=== PATIENT | female | born 1995 | race American Indian/Alaskan Native ===

== ENCOUNTER 2017-01-08 19:34 | Emergency (ER) | payer SELFPAY ==
[2017-01-09 00:06] LABS: Urine Drugs of Abuse Note Disclamer
[2017-01-09 00:48] LABS: Basophils % (Auto) 0.6 % (0.0-1.8); Eosinophils % (Auto) 0.2 % (0.0-4.3); Hematocrit 37.2 % (30.3-42.9); Hemoglobin 12.3 gm/dl (10.1-14.3); Mean Corpuscular HGB Conc 33 % (30-34); Mean Corpuscular Hemoglobin 28 pg (28-32); Mean Corpuscular Volume 85 fl (79-97); Platelet Count 282 K/mm3 (140-440); Red Blood Count 4.39 M/mm3 (3.65-5.03); Red Cell Distribution Width 14.6 % (13.2-15.2); White Blood Count 4.1 K/mm3 (4.5-11.0)
[2017-01-09 00:54] LABS: Bilirubin,Urine NEG (Negative); Blood,Urine LG (Negative); Ketones,Urine 80 mg/dL (Negative); Leukocyte Esterase,Urine TR (Negative); Mucus,Urine 3+ /HPF; Nitrite,Urine NEG (Negative); Urobilinogen,Urine < 2.0 mg/dL (<2.0)
[2017-01-09 01:06] LABS: Anion Gap 19 mmol/L; BUN/Creatinine Ratio 21.66; Blood Urea Nitrogen 13 mg/dL (7-17); Calcium 8.8 mg/dL (8.4-10.2); Carbon Dioxide 21 mmol/L (22-30); Chloride 95.7 mmol/L (98-107); Glucose 149 mg/dL (65-100); Sodium 133 mmol/L (137-145)
[2017-01-09 01:09] LABS: Potassium 2.8 mmol/L (3.6-5.0)
[2017-01-09] MEDS ORDERED: K-DUR PO ONE (02:17)
[2017-01-09] MEDS ORDERED: KCL 10MEQ/100ML 10 MEQ/100 ML BAG IV SCH (05:00)
--- NOTE | 2017-01-09 05:39 | Emergency Department Report ---
ED Female HPI - General Chief complaint: Medical Clearance Stated complaint: ABDOMINAL PAIN Time Seen by Provider: 01/09/17 02:16 Source: patient Mode of arrival: Ambulatory Limitations: No Limitations - History of Present Illness Initial comments: Patient is a 21-year-old female with history of anxiety/depression as well as pelvic inflammatory disease and bacterial vaginosis recently having finished a course of metronidazole presenting today because of pain in the pelvis. Patient states that this going on for many months. She currently does not have a discharge but is currently on her menstrual cycle. She denies any fevers or chills or vomiting or diarrhea. Has had unprotected sex within the last month. Family was also concerned about her mental health. She has been acting a little bit differently than usual, she denies any thoughts of hurting herself or others, no hallucinations. - Related Data Previous Rx's Medication Instructions Recorded Last Taken Type metroNIDAZOLE [Flagyl TAB] 500 mg PO Q12HR #14 tab 01/09/17 Unknown Rx Allergies Allergy/AdvReac Type Severity Reaction Status Date / Time No Known Allergies Allergy Verified 01/09/17 05:02 ED Review of Systems ROS: Stated complaint: ABDOMINAL PAIN Other details as noted in HPI Comment: All other systems reviewed and negative Constitutional: denies: chills, fever ENT: denies: ear pain Respiratory: denies: cough Cardiovascular: denies: chest pain Gastrointestinal: denies: abdominal pain, vomiting, diarrhea Genitourinary: denies: urgency, dysuria Skin: denies: rash Psychiatric: denies: anxiety ED Past Medical Hx - Past Medical History Previous Medical History?: Yes Hx Psychiatric Treatment: Yes (bipolar) - Surgical History Past Surgical History?: Yes Additional Surgical History: - Social History Smoking Status: Never Smoker - Medications Home Medications: Home Medications Medication Instructions Recorded Confirmed Last Taken Type metroNIDAZOLE [Flagyl TAB] 500 mg PO Q12HR #14 tab 01/09/17 Unknown Rx ED Physical Exam - General Limitations: No Limitations General appearance: alert, in no apparent distress - Head Head exam: Present: atraumatic - Eye Eye exam: Present: normal appearance - ENT ENT exam: Present: normal exam - Neck Neck exam: Present: normal inspection - Respiratory Respiratory exam: Present: normal lung sounds bilaterally, respiratory distress - Cardiovascular Cardiovascular Exam: Present: regular rate, normal rhythm - GI/Abdominal GI/Abdominal exam: Present: soft. Absent: distended, tenderness - External exam: Present: normal external exam Speculum exam: Present: other (small amount of blood in the vaginal vault, no active bleeding, no significant discharge, no cmt, no adenexal or suprapubic tenderness) - Neurological Exam Neurological exam: Present: alert, oriented X3 - Psychiatric Psychiatric exam: Present: other (goes off topic but easily redirectable, does not appear depressed, no si/hi, no flight of ideas, no racing thoughts) - Skin Skin exam: Present: intact ED Course Vital Signs 01/08/17 01/09/17 01/09/17 20:06 02:09 06:07 Temperature 98.3 F Pulse Rate 88 73 80 Respiratory 16 18 17 Rate Blood Pressure 119/81 Blood Pressure 125/82 120/80 [Left] O2 Sat by Pulse 100 98 99 Oximetry ED Medical Decision Making - Lab Data Result diagrams: 01/09/17 00:33 01/09/17 06:23 - Medical Decision Making labs show hypokalemia, po and IV potassium ordered u/s of pelvis ordered to r/o abscess given hx of PID or torsion Signed out to Dr. Marie to follow up ultrasound results Critical care attestation.: If time is entered above; I have spent that time in minutes in the direct care of this critically ill patient, excluding procedure time. ED Disposition Clinical Impression: Bacterial vaginosis, Hypokalemia Disposition: DISCHARGED TO HOME OR SELFCARE Is pt being admited?: No Does the pt Need Aspirin: No Condition: Stable Instructions: Bacterial Vaginosis (ED) Additional Instructions: Please follow up with the primary care physician in the next 3-5 days. Return to the ER if your symptoms worsen or you develop new symptoms. Avoid alcohol for at least 48 hours after you finish the prescription of metronidazole. Prescriptions: metroNIDAZOLE [Flagyl TAB] 500 mg PO Q12HR #14 tab Referrals: PRIMARY CARE, [Primary Care Provider] - 3-5 Days Forms: STI Treatment and Prevention
[2017-01-09] MEDS ORDERED: MOTRIN PO ONE (05:44)
[2017-01-09] MEDS ORDERED: NACL 0.9% 500 ML 500 ML ONE (05:53)
[2017-01-09 05:57] LABS: Magnesium 2.1 mg/dL (1.7-2.3); Phosphorous 2.3 mg/dL (2.5-4.5)
[2017-01-09] MEDS ORDERED: NACL 0.9% 500 ML 500 ML IV SCH (06:00)
[2017-01-09 06:08] VITALS: BP 120/80
--- NOTE | 2017-01-09 06:11 | Ultrasound Report ---
FINAL REPORT PROCEDURE: US TRANSVAGINAL TECHNIQUE: Real-time transvaginal sonography in multiple planes of the pelvis was performed with image documentation. This examination was performed without Doppler. Vascular abnormalities, including ovarian torsion, will not be detectable without Doppler evaluation. CPT 80519 HISTORY: right adenexal pain, hx of pid COMPARISON: No prior studies are available for comparison. FINDINGS: UTERUS Size: 6.2 x 2.8 x 3.3 cm. Endometrial thickness: 2.6 mm. Orientation: anteverted. Cervix: Normal. Fibroids/masses: None. RIGHT Ovary: 3.7 x 2.8 x 2.7 cm. Appearance: Normal. LEFT Ovary: 2.8 x 1.8 x 3.3 cm. Appearance: Normal. Pelvic fluid: None. Other: None. IMPRESSION: Normal Examination.
--- NOTE | 2017-01-09 06:13 | Ultrasound Report ---
FINAL REPORT PROCEDURE: US PELVIS DUPLEX DOPPLER TECHNIQUE: Real-time TRANSABDOMINAL sonography in multiple planes of the pelvis was performed with image documentation. This examination was performed WITH doppler. HISTORY: right adenexal pain, hx of pid COMPARISON: No prior studies are available for comparison. FINDINGS: UTERUS Size: 6.2 x 2.8 x 3.3 cm. Endometrial thickness: 2.6 mm. Orientation: anteverted. Cervix: Normal. Fibroids/masses: None. RIGHT Ovary: 3.7 x 2.8 x 2.7 cm. Appearance: Normal. LEFT Ovary: 2.8 x 1.8 x 3.3 cm. Appearance: Normal. Pelvic fluid: None. Other: None. IMPRESSION: Normal uterus and ovaries. There is no evidence of ovarian torsion.
[2017-01-09] MEDS ORDERED: NACL 0.9% 1000 ML 1,000 ML ONE (06:30)
== END 2017-01-09 07:21 | disposition home or self-care (01) ==
LOC: ED 19:34 → EEVIPCON 19:34 → ED 01-09 07:21
DX: N76.0 Acute vaginitis (principal); B96.89 Other specified bacterial agents as the cause of diseases classified elsewhere; E87.6 Hypokalemia; F31.9 Bipolar disorder, unspecified
CPT/HCPCS: 36415; 76830; 80048; 80307; 81001; 81025; 83735; 84100; 84132; 85025; 87210; 87591; 93975; 96365; 99285; G0480; J3480; J7030; J7040; 80320

== ENCOUNTER 2019-01-25 16:52 | Emergency (ER) | payer MEDICAID ==
--- NOTE | 2019-01-25 17:06 | Emergency Department Report ---
Blank Doc - Documentation Documentation: 23 y/o female 5 months under the care of NURSE SUPERVISOR presents to ED c/o of lower abdominal pain and vaginal discharge. Wants evaluation because she feels she is too small and pain wont resolve. Denies vaginal bleeding. No vomiting or fever. NO dysuria plan Urine, hcg quant and U/S
[2019-01-25 17:38] LABS: Bacteria,Urine 1+ /HPF (Negative); Bilirubin,Urine NEG (Negative); Blood,Urine NEG (Negative); Color,Urine Straw (Yellow); Mucus,Urine FEW /HPF; Protein,Urine <15 mg/dL mg/dL (Negative); Urobilinogen,Urine < 2.0 mg/dL (<2.0)
--- NOTE | 2019-01-25 18:03 | Emergency Department Report ---
ED HPI - General Chief complaint: Abdominal Pain Stated complaint: ABDOMINAL PAIN Time Seen by Provider: 01/25/19 17:02 Source: patient Mode of arrival: Ambulatory Limitations: No Limitations - History of Present Illness Initial comments: Pt is a 23 yo female who presents to the ED with c/o suprapubic abd pain that began months ago. Pt states she believes she is currently 5 months and states she has had abdominal discomfort throughout her . She states she was told at her [employer] that she had BV two months ago but pt reports she did not get treatment. States she is having increased white vaginal discharge. She denies any itching, burning, dysuria, vaginal lesions, vaginal blisters. Pt states she believes her LNMP was in Sep 2018 but is not sure. She states her [employer]ICE [employer] OF [employer] is at [facility] and states she last had an US on November 01. She denies any V/D or fever. no PMHx, no allergies. /P:0/A:1 - Related Data Previous Rx's Medication Instructions Recorded Last Taken Type metroNIDAZOLE [Flagyl TAB] 500 mg PO Q12HR #14 tab 01/09/17 Unknown Rx metroNIDAZOLE [metroNIDAZOLE 5 gm VG DAILY 5 Days #1 gel.w.appl 01/25/19 Unknown Rx VAGINAL 0.75% gel] Allergies Allergy/AdvReac Type Severity Reaction Status Date / Time No Known Allergies Allergy Verified 01/25/19 16:53 ED Review of Systems ROS: Stated complaint: ABDOMINAL PAIN Other details as noted in HPI Comment: All other systems reviewed and negative ED Past Medical Hx - Past Medical History Hx Psychiatric Treatment: Yes (bipolar) - Surgical History Additional Surgical History: - Social History Smoking Status: Never Smoker Substance Use Type: None - Medications Home Medications: Home Medications Medication Instructions Recorded Confirmed Last Taken Type metroNIDAZOLE [Flagyl TAB] 500 mg PO Q12HR #14 tab 01/09/17 Unknown Rx metroNIDAZOLE [metroNIDAZOLE 5 gm VG DAILY 5 Days #1 gel.w.appl 01/25/19 Unknown Rx VAGINAL 0.75% gel] ED Physical Exam - General Limitations: No Limitations General appearance: alert, in no apparent distress - Head Head exam: Present: atraumatic, normocephalic - Eye Eye exam: Present: normal appearance, PERRL - ENT ENT exam: Present: mucous membranes moist - Respiratory Respiratory exam: Present: normal lung sounds bilaterally. Absent: respiratory distress, wheezes, rales, rhonchi, stridor, chest wall tenderness, accessory muscle use, decreased breath sounds, prolonged expiratory - Cardiovascular Cardiovascular Exam: Present: regular rate, normal rhythm, normal heart sounds. Absent: systolic murmur, diastolic murmur, rubs, gallop - GI/Abdominal GI/Abdominal exam: Present: soft, normal bowel sounds. Absent: distended, tenderness, guarding, rebound, rigid - External exam: Present: normal external exam. Absent: erythema, swelling, lesions, lacerations, ecchymosis, bleeding Speculum exam: Present: vaginal discharge (copious amounts of white/clear discharge), cervical discharge (copious amounts of white/clear discharge), other (cervical os is closed, project construction assistant manager: CLEVE smith). Absent: vaginal bleeding, foreign body, tissue, laceration Bi-manual exam: Present: normal bi-manual exam. Absent: cervical motion tendernes, adnexal tenderness, adnexal mass, uterine enlargement, uterine tenderness - Back Exam Back exam: Absent: CVA tenderness (R), CVA tenderness (L) - Neurological Exam Neurological exam: Present: alert, oriented X3 - Psychiatric Psychiatric exam: Present: normal affect, normal mood - Skin Skin exam: Present: warm, dry, intact ED Course Vital Signs 01/25/19 01/25/19 17:02 22:05 Temperature 97.8 F 98.7 F Pulse Rate 72 81 Respiratory 20 20 Rate Blood Pressure 111/70 Blood Pressure 106/67 [Left] O2 Sat by Pulse 100 100 Oximetry ED Medical Decision Making - Lab Data Lab Results 01/25/19 01/25/19 Range/Units 17:37 Unknown HCG, Quant 79728 H (0-4) mIU/mL Urine Color Straw (Yellow) Urine Turbidity Clear (Clear) Urine pH 7.0 (5.0-7.0) Ur Specific [place] 1.008 (1.003-1.030) Urine Protein <15 mg/dl (Negative) mg/dL Urine Glucose (UA) Neg (Negative) mg/dL Urine Ketones Neg (Negative) mg/dL Urine Blood Neg (Negative) Urine Nitrite Neg (Negative) Urine Bilirubin Neg (Negative) Urine Urobilinogen < 2.0 (<2.0) mg/dL Ur Leukocyte Esterase Lg (Negative) Urine WBC (Auto) 3.0 (0.0-6.0) /HPF Urine RBC (Auto) 2.0 (0.0-6.0) /HPF U Epithel Cells (Auto) 1.0 (0-13.0) /HPF Urine Bacteria (Auto) 1+ (Negative) /HPF Urine Mucus Few /HPF - Radiology Data Radiology results: report reviewed PROCEDURE: US OB >= 14 WEEKS FETUS TECHNIQUE: Multiple ultrasound transabdominal HISTORY: pelvic pain/ COMPARISONS: FINDINGS: Single live intrauterine gestation present in breech presentation Placenta is anterior heart rate 152 bpm Cervical length 4.0 cm biometric measurements were obtained Biparietal diameter 18 weeks 4 days Head circumference 18 weeks 1 day. Abdominal circumference 18 weeks 4 days Femur length 18 weeks 4 days. Based on today's exam estimated weight is 246 g. Estimated weight 1 lb. 9 oz. Composite gestational age today 18 weeks 3 days with estimated date of delivery June 25, 2019 Following structures were seen and appear grossly unremarkable, choroid plexus, cisterna magna, posterior fossa, ventricles, stomach, kidneys, urinary bladder, diaphragm, four- chamber view of the heart, three-vessel cord and cord insert Visualized portions of the spine are unremarkable there is some limitation due to positioning IMPRESSION: Single live intrauterine gestation estimated at 18 weeks 3 days. This document is electronically signed by Emir Boyd MD., January 25 2019 08:07:46 PM ET Transcribed By: MEGHAN Dictated By: KIRBY BOYD MD Electronically Authenticated By: KIRBY BOYD MD Signed Date/Time: 01/25/192008 - Medical Decision Making Pt is a 23 yo female who presents to the ED with c/o suprapubic abd pain that began months ago. Pt states she believes she is currently 5 months and states she has had abdominal discomfort throughout her . She states she was told at her [employer] that she had BV two months ago but pt reports she did not get treatment. States she is having increased white vaginal discharge. She denies any itching, burning, dysuria, vaginal lesions, vaginal blisters. Pt states she believes her LNMP was in Sep 2018 but is not sure. She states her [employer]ICE [employer] is at [facility] and states she last had an US on November 01. She denies any V/D or fever. no PMHx, no allergies. /P:0/A:1. OB US shows Single live intrauterine gestation estimated at 18 weeks 3 day. UA is normal. on pelvic exam pt has copious amounts of discharge, no CMT, no adnexal tenderness. Wet prep shows many PMNs, no clue cells, no trichomonas, no yeast. pt also swabbed for G/C advised may get results from medical records in one week. will tx pt in the ER for G/C and send home with metrogel. advised to use as prescribed. discussed to follow up with her [employer]ICE [employer] OF [employer]ING in the next 2-3 days. no intercourse for 10 days. have partner tested and treated. if concerned for any other STDs be seen by PCP, VICE [employer]IDENT OF [employer], or health department. return to the emergency room for any new or worsening symptoms. - Differential Diagnosis STD, , vaginitis Critical care attestation.: If time is entered above; I have spent that time in minutes in the direct care of this critically ill patient, excluding procedure time. ED Disposition Clinical Impression: Qualifiers: Weeks of gestation: 18 weeks Qualified Code(s): Z3A.18 - 18 weeks gestation of Vaginitis Qualifiers: Chronicity: acute Qualified Code(s): N76.0 - Acute vaginitis Abdominal pain Qualifiers: Abdominal location: lower abdomen, unspecified Qualified Code(s): R10.30 - Lower abdominal pain, unspecified Disposition: DC-01 TO HOME OR SELFCARE Is pt being admited?: No Does the pt Need Aspirin: No Condition: Stable Instructions: (ED), Vaginitis (ED) Additional Instructions: Please use medication as prescribed. You may get results from medical records in one week from your test from today. Please follow up with your [employer]ICE [employer] in the next 2-3 days. no intercourse for 10 days. have partner tested and treated. if concerned for any other STDs be seen by PCP, [employer], or health department. return to the emergency room for any new or worsening symptoms. continue taking a vitamin daily. Prescriptions: metroNIDAZOLE [metroNIDAZOLE VAGINAL 0.75% gel] 5 gm VG DAILY 5 Days #1 gel.w.appl Referrals: XOCHILT BOOTH MD [Primary Care Provider] - 2-3 Days Forms: Work/School Release Form(ED) Time of Disposition: 20:57 Print Language: PAKISTANI
--- NOTE | 2019-01-25 20:09 | Ultrasound Report ---
PROCEDURE: US OB >= 14 WEEKS FETUS TECHNIQUE: Multiple ultrasound transabdominal HISTORY: pelvic pain/ COMPARISONS: FINDINGS: Single live intrauterine gestation present in breech presentation Placenta is anterior heart rate 152 bpm Cervical length 4.0 cm biometric measurements were obtained Biparietal diameter 18 weeks 4 days Head circumference 18 weeks 1 day. Abdominal circumference 18 weeks 4 days Femur length 18 weeks 4 days. Based on today's exam estimated weight is 246 g. Estimated weight 1 lb. 9 oz. Composite gestational age today 18 weeks 3 days with estimated date of delivery June 25, 2019 Following structures were seen and appear grossly unremarkable, choroid plexus, cisterna magna, poste rior fossa, ventricles, stomach, kidneys, urinary bladder, diaphragm, four-chamber view of the heart, three-vessel cord and cord insert Visualized portions of the spine are unremarkable there is some limitation due to positioning IMPRESSION: Single live intrauterine gestation estimated at 18 weeks 3 days. This document is electronically signed by Emir Stanton MD., January 25 2019 08:07:46 PM ET
[2019-01-25] MEDS ORDERED: ROCEPHIN IM ONE (20:51)
[2019-01-25] MEDS ORDERED: ZITHROMAX PO ONE (20:51)
[2019-01-25] MEDS ORDERED: XYLOCAINE 1% MPF 5 mL INFILTRATI ONE (20:51)
[2019-01-25 22:06] VITALS: BP 106/67
== END 2019-01-25 22:24 | disposition home or self-care (01) ==
LOC: ED 16:52
DX: O23.592 Infection of other part of genital tract in pregnancy, second trimester (principal); Z3A.18 18 weeks gestation of pregnancy
CPT/HCPCS: 36415; 76805; 81001; 84702; 87210; 87591; 96372; 99284; J0696

== ENCOUNTER 2019-01-27 21:31 | Emergency (ER) | payer MEDICAID, OTHER ==
[2019-01-27 21:41] VITALS: BP 121/70
--- NOTE | 2019-01-27 21:41 | Emergency Department Report ---
Blank Doc - Documentation Documentation: This is a 23-year-old female that presents with depression. Denies any SI/HI, This initial assessment/diagnostic orders/clinical plan/treatment(s) is/are subject to change based on patient's health status, clinical progression and re- assessment by fellow clinical providers in the ED. Further treatment and workup at subsequent clinical providers discretion. Patient/guardians urged not to elope from the ED as their condition may be serious if not clinically assessed and managed. Initial orders include: 1- Patient sent to MAIN ED for further evaluation and treatment 2- senior wind turbine technician was notified to have patient be brought back [facility]. 3- RN was notified to keep patient as close range and observation until room available
[2019-01-27 21:58] LABS: Basophils % (Auto) 0.5 % (0.0-1.8); Eosinophils % (Auto) 0.1 % (0.0-4.3); Hematocrit 34.8 % (30.3-42.9); Hemoglobin 11.8 gm/dl (10.1-14.3); Lymphocytes % (Auto) 28.1 % (13.4-35.0); Mean Corpuscular HGB Conc 34 % (30-34); Mean Corpuscular Volume 87 fl (79-97); Monocytes # (Auto) 0.4 K/mm3 (0.0-0.8); Monocytes % (Auto) 5.5 % (0.0-7.3); Platelet Count 281 K/mm3 (140-440); Red Cell Distribution Width 14.2 % (13.2-15.2)
[2019-01-27 22:17] LABS: BUN/Creatinine Ratio 14; Blood Urea Nitrogen 7 mg/dL (7-17); Hemolysis Index 1
[2019-01-27 22:50] LABS: Bilirubin,Urine NEG (Negative); Blood,Urine NEG (Negative); Color,Urine Yellow (Yellow); Mucus,Urine 3+ /HPF; Protein,Urine <15 mg/dL mg/dL (Negative); Urobilinogen,Urine < 2.0 mg/dL (<2.0)
[2019-01-27 23:05] LABS: Amphetamine Screen,Urine PRESUMPTIVE NEGATIVE; Benzodiazepines Screen,Urine PRESUMPTIVE NEGATIVE; Cannabinoid Screen,Urine PRESUMPTIVE NEGATIVE; Cocaine Screen,Urine PRESUMPTIVE NEGATIVE; Methadone Screen,Urine PRESUMPTIVE NEGATIVE; Opiate Screen,Urine PRESUMPTIVE NEGATIVE
== END 2019-01-27 22:30 | disposition left against medical advice (07) ==
LOC: ED 21:31
DX: F99 Mental disorder, not otherwise specified (principal); Z53.21 Procedure and treatment not carried out due to patient leaving prior to being seen by health care provider
CPT/HCPCS: 36415; 80048; 80307; 81001; 84703; 85025; G0480; 80320

== ENCOUNTER 2019-06-27 03:27 | Inpatient (IN) | payer MEDICAID ==
[2019-06-27] MEDS ORDERED: MINERAL OIL 30 ML ORAL LIQD PO PRN (04:13)
[2019-06-27] MEDS ORDERED: NALOXONE 0.4 MG/1 ML INJ IV PRN (04:13)
[2019-06-27] MEDS ORDERED: AMPICILLIN/NS 2 GM/100 ML 2 GM/100 ML BAG IV ONE (04:13)
[2019-06-27] MEDS ORDERED: PROMETHAZINE 25 MG TAB PO PRN ×2 (04:13→13:47)
[2019-06-27] MEDS ORDERED: ONDANSETRON 4 MG/2 ML INJ IV PRN ×2 (04:13→13:47)
[2019-06-27] MEDS ORDERED: LIDOCAINE (2%) 20 MG/1 ML VIAL 20 ML MDV INFILTRATI ONE ×2 (04:13→13:22)
[2019-06-27] MEDS ORDERED: TERBUTALINE 1 MG/1 ML INJ IVP PRN (04:13)
[2019-06-27] MEDS ORDERED: ePHEDrine SULFATE 50 MG/1 ML INJ IV PRN ×2 (04:13→06:19)
[2019-06-27] MEDS ORDERED: BUTORPHANOL 2 MG/1 ML INJ IV PRN (04:13)
[2019-06-27] MEDS ORDERED: fentaNYL 100 MCG/2 ML INJ IV PRN (04:13)
[2019-06-27] MEDS ORDERED: TERBUTALINE 1 MG/1 ML INJ SUB-Q PRN (04:13)
[2019-06-27 04:46] LABS: Hematocrit 34.2 % (30.3-42.9); Hemoglobin 11.3 gm/dl (10.1-14.3); Mean Corpuscular HGB Conc 33 % (30-34); Mean Corpuscular Volume 85 fl (79-97); Platelet Count 328 K/mm3 (140-440); Red Blood Count 4.02 M/mm3 (3.65-5.03)
[2019-06-27] MEDS: LACTATED RINGERS 1,000 ML IV SCH ×3 (04:47→10:58)
[2019-06-27] MEDS ORDERED: OXYTOCIN DRIP 30 UNITS/500 ML BAG IV SCH ×2 (05:00)
[2019-06-27] MEDS ORDERED: OXYTOCIN 20 UNIT/1000ML DRIP 20 UNITS/1,000 ML BAG IV SCH ×2 (05:00→14:00)
[2019-06-27] MEDS ORDERED: NALOXONE 2 MG/2 ML INJ IV PRN (06:19)
--- NOTE | 2019-06-27 06:24 | Anesthesia Consultation ---
Anesthesia Consult and Med Hx Date of service: 06/27/19 - Airway Anesthetic Teeth Evaluation: Good ROM Head & Neck: Adequate Mental/Hyoid Distance: Adequate Mallampati Class: Class II Intubation Access Assessment: Probably Good - Pulmonary Exam CTA: Yes - Cardiac Exam Cardiac Exam: RRR - Pre-Operative Health Status ASA Pre-Surgery Classification: ASA2 Proposed Anesthetic Plan: Epidural - Pulmonary Hx Smoking: No Hx Asthma: No Hx Respiratory Symptoms: No SOB: No COPD: No Home Oxygen Therapy: No Hx Pneumonia: No Hx Sleep Apnea: No - Cardiovascular System Hx Hypertension: No Hx Coronary Artery Disease: No Hx Heart Attack/AMI: No Hx Angina: No Hx Percutaneous Transluminal Coronary Angioplasty (PTCA): No Hx Cardia Arrhythmia: No Hx Pacemaker: No Hx Internal Defibrillator: No Hx Valvular Heart Disease: No Hx Heart Murmur: No Hx Peripheral Vascular Disease: No - Central Nervous System Hx Neuromuscular Disorder: No Hx Seizures: No CVA: No Hx Back Pain: No Hx Psychiatric Problems: No - Gastrointestinal Hx Ulcer: No Hx Gastroesophageal Reflux Disease: No - Endocrine Hx Renal Disease: No Hx End Stage Renal Disease: No Hx Cirrhosis: No Hx Liver Disease: No Hx Insulin Dependent Diabetes: No Hx Non-Insulin Dependent Diabetes: No Hx Thyroid Disease: No Hx Hypothyroidism: No Hx Hyperthyroidism: No - Hematic Hx Anemia: Yes Hx Sickle Cell Disease: No - Other Systems Hx Alcohol Use: Yes Hx Substance Use: No Hx Cancer: No Hx Obesity: Yes (bmi 35.2)
[2019-06-27] MEDS ORDERED: fentaNYL-BUPIV 2 MCG/ML-0.125% 200 MCG/100 ML BAG EPIDURAL SCH (07:00)
--- NOTE | 2019-06-27 07:52 | History and Physical Report ---
History of Present Illness Date of examination: 06/27/19 Date of admission: 06/27/19 04:15 Chief complaint: labor History of present illness: This is a 23 yo G240 weeks here for labor. She was admitted at 5cm this am at 4am. She is a patient of [facility]. Past History Past Medical History: no pertinent history Past Surgical History: no surgical history Family/Genetic History: diabetes, hypertension Social history: single. denies: smoking, alcohol abuse, prescription drug abuse - Obstetrical History Expected Date of Delivery: 06/27/19 Actual Gestation: 40 Week(s) 0 Day(s) : 2 Para: 0 Hx # Term Pregnancies: 0 Number of Pregnancies: 0 Spontaneous Abortions: 1 Induced : 0 Number of Living Children: 0 Medications and Allergies Allergies Allergy/AdvReac Type Severity Reaction Status Date / Time No Known Allergies Allergy Verified 01/25/19 16:53 Active Meds: Active Medications Butorphanol Tartrate (Stadol) 1 mg IV Q2H PRN PRN Reason: Pain, Moderate (4-6) Ephedrine Sulfate (Ephedrine Sulfate) 10 mg IV Q2M PRN PRN Reason: Hypotension Ephedrine Sulfate (Ephedrine Sulfate) 10 mg IV Q2M PRN PRN Reason: Hypotension Fentanyl (Sublimaze) 100 mcg IV Q2H PRN PRN Reason: Labor Pain Oxytocin/Sodium Chloride (Pitocin/Ns 20 Unit/1000ml Drip) 20 units in 1,000 mls @ 125 mls/hr IV DIRECT BRITTON Oxytocin/Sodium Chloride (Pitocin/Ns 30 Unit/500ml) 30 units in 500 mls @ 1 mls/hr IV TITR BRITTON; Protocol Last Admin: 06/27/19 06:50 Dose: 1 milliunits/min, 1 mls/hr Documented by: Oxytocin/Sodium Chloride (Pitocin/Ns 30 Unit/500ml) 30 units in 500 mls @ 2 mls/hr IV TITR BRITTON; Protocol Lactated Ringer's (Lactated Ringers) 1,000 mls @ 125 mls/hr IV DIRECT BRITTON Last Admin: 06/27/19 06:55 Dose: 125 mls/hr Documented by: Ampicillin Sodium (Ampicillin/Ns 1 Gm/50 Ml) 1 gm in 50 mls @ 100 mls/hr IV Q4HR BRITTON; Protocol Fentanyl/Bupivacaine/Sodium Chlor (Fentanyl-Bupiv 2 Mcg/Ml-0.125%) 200 mcg in 100 mls @ 12 mls/hr EPIDURAL TITR BRITTON; Protocol Mineral Oil (Mineral Oil) 30 ml PO QHS PRN PRN Reason: Constipation Naloxone HCl (Naloxone) 0.1 mg IV Q2MIN PRN PRN Reason: Res Rate </= 8 or 02 SAT < 92% Naloxone HCl (Naloxone) 0.2 mg IV Q5M PRN PRN Reason: Respiratory sedation Ondansetron HCl (Zofran) 4 mg IV Q8H PRN PRN Reason: Nausea And Vomiting Promethazine HCl (Phenergan) 25 mg PO Q6H PRN PRN Reason: Nausea And Vomiting Terbutaline Sulfate (Brethine) 0.25 mg SUB-Q ONCE PRN PRN Reason: Hyperstimulation/Hypertonicity Terbutaline Sulfate (Brethine) 0.25 mg IVP ONCE PRN PRN Reason: Hyperstimulation/Hypertonicity Review of Systems All systems: negative - Vital Signs Vital signs: Vital Signs Pulse BP 73 129/78 06/27/19 03:47 06/27/19 03:47 Temp Pulse Resp BP Pulse Ox 97.9 F 86 18 93/53 100 06/27/19 04:25 06/27/19 07:35 06/27/19 04:25 06/27/19 07:17 06/27/19 07:35 - Physical Exam Breasts: Positive: normal Cardiovascular: Regular rate, Normal S1 Abdomen: Positive: normal appearance, soft, normal bowel sounds. Negative: distention, tenderness, guarding Genitourinary (Female): Positive: normal external genitalia, normal perenium Vagina: Positive: normal moisture Uterus: Positive: normal size, normal contour Anus/Rectum: Positive: normal perianal skin Extremities: Positive: normal Deep Tendon Reflex Grade: Normal +2 - Obstetrical FHR: category 1 Cervical Dilatation: 6 Cervical Effacement Percentage: 90 station: -2 Uterine Contraction Pattern: Regular Uterine Tone Measurement Phase: Contraction Uterine Contraction Intensity: Moderate Results Result Diagrams: 06/27/19 04:21 All other labs normal. Assessment and Plan A/P IUP 40 weeks GBS + active labor IVF, labs s/p epidural pitocin for augmentation abx for GBS prophylaxis
[2019-06-27] MEDS: AMPICILLIN/NS 1 GM/50 ML 1 GM/50 ML BAG IV SCH ×2 (09:09→10:01)
[2019-06-27] MEDS ORDERED: PROMETHAZINE 25 MG RECT SUPP PR PRN (13:47)
[2019-06-27] MEDS ORDERED: LANOLIN/ZINC/DIMETHICONE (LANSINOH) 7 GM TP PRN (13:47)
[2019-06-27] MEDS ORDERED: MAGNESIUM HYDROXIDE (MOM) ORAL LIQD UDC PO PRN (13:47)
[2019-06-27] MEDS ORDERED: ACETAMINOPHEN 325 MG TAB PO PRN (13:47)
[2019-06-27] MEDS ORDERED: WITCH HAZEL/ GLYCERIN PAD TP PRN (13:47)
[2019-06-27] MEDS ORDERED: KETOROLAC 30 MG/1 ML INJ IV PRN (13:47)
[2019-06-27] MEDS ORDERED: HYDROcodone/ACETAMINOPHEN 5-325 MG TAB PO PRN (13:47)
[2019-06-27] MEDS ORDERED: diphenhydrAMINE 25 MG CAP PO PRN (13:47)
[2019-06-27] MEDS ORDERED: BENZOCAINE/MENTHOL 20/0.5% TOP SPRAY 56 GM TP PRN (13:47)
--- NOTE | 2019-06-27 13:47 | Procedure Note ---
OB Delivery Note - Delivery Date of Delivery: 06/27/19 Surgeon: WINSTON CLANCY Estimated blood loss: 500cc - Vaginal Delivery presentation: vertex Delivery position: OA Delivery induction: none Delivery augmentation: rupture of membranes, pitocin Delivery monitor: external FHT, external uterine Route of delivery: Delivery placenta: spontaneous Delivery cord: 3 umbilical vessels Delivery laceration: 2nd degree Delivery repair: vicryl Anesthesia: local, epidural Delivery comments: Patient was noted to be c/c/ +1 and commneced to pushing a viable female at 1300. She delivered vaginally and cord was clamped and cut after placing baby on mother's chest. The cord was cut by father of baby. Cord blood obtained. The placenta delivered intact with 3 vessel cord at 1308. The weight of viable female infant was 6 pounds 7oz. Apgars 8 and 8. Survey of perineum revealed a 2nd degree laceration repaired with 2-0 vicryl. Excellent hemostasis noted patient tolerated and bonding with baby. EBL 500 cc - A at 1 minute: 8 at 5 minutes: 8 Infant Gender: Female (6 pounds 7 ounces)
[2019-06-27] MEDS ORDERED: LIDOCAINE 2%/EPINEPHRINE 1:100,000 VIAL (20 ML) INFILTRATI ONE (13:59)
[2019-06-27] MEDS: IBUPROFEN 600 MG TAB PO SCH (16:40)
[2019-06-27] MEDS: oxyCODONE /ACETAMINOPHEN 5-325MG TAB PO PRN (19:59)
[2019-06-27] MEDS: DOCUSATE SODIUM 100 MG CAP PO SCH (23:00)
[2019-06-28 00:52] LABS: Hematocrit 30.7 % (30.3-42.9); Hemoglobin 10.1 gm/dl (10.1-14.3)
[2019-06-28] MEDS: IBUPROFEN 600 MG TAB PO SCH ×2 (03:48→23:58)
[2019-06-28] MEDS: SENNOSIDES/DOCUSATE SODIUM 8.6/50 MG TAB PO SCH ×2 (04:00→21:48)
[2019-06-28] MEDS ORDERED: MEASLES, MUMPS & RUBELLA 12,500 UNIT/0.5 ML VACCINE SUB-Q ONE (06:00)
[2019-06-28] MEDS ORDERED: TETANUS,DIPH,PERTUSS(ACELL) VACCINE 0.5 ML SYRINGE IM ONE (06:00)
[2019-06-28] MEDS ORDERED: PRENATAL VIT27-FE FUMARATE-FOLIC ACID VIT TAB PO SCH (10:00)
--- NOTE | 2019-06-28 10:01 | Post Anesthesia Evaluation ---
- Post Anesthesia Evaluation Patient Participated: Yes Airway Patent: Yes Stable Respiratory Function: Yes Nausea/Vomiting: No Temp > 96.8F: Yes Pain Manageable: Yes Adequeate Hydration: Yes Anesthesia Complications: No Block Receding Appropriately: Yes Patient on Ventilator: No
--- NOTE | 2019-06-28 11:06 | Progress Note ---
Assessment and Plan A/P PPD1 doing well VSS routine PP care Subjective - Subjective Date of service: 06/28/19 Principal diagnosis: s/p Interval history: This is a 23 yo G240 weeks here for labor. She was admitted at 5cm this am at 4am. She is a patient of [facility]. Patient reports: appetite normal, voiding normally, pain well controlled, flatus, ambulating normally [place]: doing well Objective - Vital Signs Latest vital signs: Vital Signs Temp Pulse Resp BP BP Pulse Ox 06/28/19 08:06 98.4 F 85 20 107/62 96 06/28/19 01:22 98.1 F 92 H 20 116/56 98 06/27/19 20:04 98.0 F 84 20 115/70 99 06/27/19 16:40 18 06/27/19 15:50 98.2 F 74 20 91/69 06/27/19 14:56 99.3 F 06/27/19 14:18 85 101/52 06/27/19 13:48 90 116/68 06/27/19 13:18 90 119/63 06/27/19 13:02 49 L 06/27/19 12:38 96 H 82 L 06/27/19 12:37 87 100 06/27/19 12:32 82 100 06/27/19 12:27 82 100 06/27/19 12:22 83 99 06/27/19 12:17 82 100 06/27/19 12:12 82 100 06/27/19 12:07 89 100 06/27/19 12:02 83 100 06/27/19 11:57 81 100 06/27/19 11:50 95 H 111/58 06/27/19 11:40 91 H 100 06/27/19 11:35 94 H 99 06/27/19 11:30 87 100 06/27/19 11:25 95 H 99 06/27/19 11:20 81 98 06/27/19 11:18 87 95/53 06/27/19 11:15 84 98 06/27/19 11:10 84 99 Intake and Output 06/27/19 06/28/19 06/28/19 23:59 07:59 15:59 Intake Total 240 Output Total 1800 Balance -1800 240 Intake: Oral 240 Output: Urine 1800 Void 1800 Other: Total, Intake Amount 240 Total, Output Amount 900 # Voids Void 1 1 - Exam Breasts: Present: normal Cardiovascular: Present: Regular rate, Normal S1 Lungs: Present: Clear to auscultation, Normal air movement Abdomen: Present: normal appearance, soft, normal bowel sounds. Absent: distention, tenderness, guarding Vulva: both: normal Uterus: Present: normal, firm, fundal height below umbilicus. Absent: bogginess, tenderness Extremities: Present: normal Deep Tendon Reflex Grade: Normal +2 Incision: Present: normal
--- NOTE | 2019-06-28 11:11 | Discharge Summary ---
Providers - Providers Date of Admission: 06/27/19 04:15 Date of discharge: 06/29/19 Attending physician: MARIANO GUEVARA Primary care physician: MARIANO GUEVARA Hospitalization Reason for admission: active labor Delivery: Episiotomy: none Laceration: none Other procedures: none complications: none [place] baby: female Hospital course: Routine PP care. F/u in 4 weeks Condition at discharge: Good Disposition: DC-01 TO HOME OR SELFCARE Plan - Discharge Medications Prescriptions: Ibuprofen [Motrin] 600 mg PO Q8H PRN #30 tablet PRN Reason: Pain oxyCODONE /ACETAMINOPHEN [Percocet 5/325] 1 tab PO Q6HR PRN #30 tablet PRN Reason: Pain - Provider Discharge Summary Activity: routine, no sex for 6 weeks, no strenuous exercise Diet: routine Instructions: routine Additional instructions: [] Smoking cessation referral if applicable(refer to patient education folder for contact #) [] Refer to [facility] Booklet Call your doctor immediately for: * Fever > 100.5 * Heavy vaginal bleeding ( >1 pad per hour) * Severe persistent headache * Shortness of breath * Reddened, hot, painful area to leg or breast * Drainage or odor from incision. * Keep incision clean and dry at all times and follow doctor's instructions regarding bathing/showering - Follow up plan Follow up: MARIANO GUEVARA MD [Primary Care Provider] - 07/25/19
[2019-06-28] MEDS: oxyCODONE /ACETAMINOPHEN 5-325MG TAB PO PRN ×2 (11:48→19:00)
[2019-06-28] MEDS: DOCUSATE SODIUM 100 MG CAP PO SCH ×2 (11:49→21:48)
[2019-06-29] MEDS: IBUPROFEN 600 MG TAB PO SCH ×2 (02:00→16:40)
[2019-06-29] MEDS: oxyCODONE /ACETAMINOPHEN 5-325MG TAB PO PRN (13:25)
[2019-06-29] MEDS: DOCUSATE SODIUM 100 MG CAP PO SCH (13:25)
[2019-06-29 16:28] VITALS: BP 121/82
== END 2019-06-29 18:55 | disposition home or self-care (01) | DRG 775 ==
LOC: TRG 03:27 → LD 04:15 → OB 16:24
PROVIDERS: ADMIT Obstetrics & Gynecology; ATTEND Obstetrics & Gynecology
PROC: 10E0XZZ Delivery of Products of Conception, External Approach (ICD-10-PCS; principal; 2019-06-27)
PROC: 0KQM0ZZ Repair Perineum Muscle, Open Approach (ICD-10-PCS; 2019-06-27)
PROC: 3E0R3BZ Introduction of Anesthetic Agent into Spinal Canal, Percutaneous Approach (ICD-10-PCS; 2019-06-27)
PROC: 00HU33Z Insertion of Infusion Device into Spinal Canal, Percutaneous Approach (ICD-10-PCS; 2019-06-27)
PROC: 3E0234Z Introduction of Serum, Toxoid and Vaccine into Muscle, Percutaneous Approach (ICD-10-PCS; 2019-06-28)
DX: O99.824 Streptococcus B carrier state complicating childbirth (principal); O99.214 Obesity complicating childbirth; O70.1 Second degree perineal laceration during delivery; Z37.0 Single live birth; Z3A.40 40 weeks gestation of pregnancy; Z23 Encounter for immunization; Z82.49 Family history of ischemic heart disease and other diseases of the circulatory system; Z83.3 Family history of diabetes mellitus
CPT/HCPCS: 36415; 85014; 85018; 85027; 86850; 86900; 86901; G0378; A6250; J0290; J2590; J7120

== ENCOUNTER 2019-10-08 16:19 | Emergency (ER) | payer MEDICAID ==
--- NOTE | 2019-10-08 16:32 | Event Note ---
ED Screening Note Date of service: 10/08/19 Time: 16:29 ED Screening Note: 24 yo with Bipolar disorder presnts to ED with father for panic attack and paranoia GM just passed Just had a baby 3 months needing a psych eval This initial assessment/diagnostic orders/clinical plan/treatment(s) is/are subject to change based on patients health status, clinical progression and re- assessment by fellow clinical providers in the ED. Further treatment and workup at subsequent clinical providers discretion. Patient/guardian urged not to elope from the ED as their condition may be serious if not clinically assessed and managed. Initial orders include: labs, ua, psych eval main side eval
[2019-10-08 17:22] LABS: Hemoglobin 14.1 gm/dl (10.1-14.3); Mean Corpuscular HGB Conc 34 % (30-34); Mean Corpuscular Volume 85 fl (79-97); Platelet Count 332 K/mm3 (140-440); Red Blood Count 4.97 M/mm3 (3.65-5.03); Red Cell Distribution Width 14.5 % (13.2-15.2)
[2019-10-08 17:27] LABS: BUN/Creatinine Ratio 17; Blood Urea Nitrogen 10 mg/dL (7-17); Calcium 9.7 mg/dL (8.4-10.2); Hemolysis Index 10
[2019-10-08 17:53] LABS: Bilirubin,Urine NEG (Negative); Blood,Urine MOD (Negative); Color,Urine Yellow (Yellow); Mucus,Urine FEW /HPF; Protein,Urine <15 mg/dL mg/dL (Negative); Urobilinogen,Urine < 2.0 mg/dL (<2.0)
[2019-10-08 18:02] LABS: Amphetamine Screen,Urine PRESUMPTIVE NEGATIVE; Benzodiazepines Screen,Urine PRESUMPTIVE NEGATIVE; Cannabinoid Screen,Urine PRESUMPTIVE NEGATIVE; Cocaine Screen,Urine PRESUMPTIVE NEGATIVE; Methadone Screen,Urine PRESUMPTIVE NEGATIVE; Opiate Screen,Urine PRESUMPTIVE NEGATIVE
[2019-10-08] MEDS ORDERED: ZIPRASIDONE MESYLATE 20 MG VIAL IM ONE ×3 (18:42→23:25)
--- NOTE | 2019-10-08 19:08 | Emergency Department Report ---
ED General Adult HPI - General Chief complaint: Psych Stated complaint: PANIC ATTACK Time Seen by Provider: 10/08/19 17:37 Source: patient Mode of arrival: Ambulatory Limitations: No Limitations - History of Present Illness Initial comments: The patient presents to the emergency department with a chief complaint of insomnia. Patient states she has not slept in the last 2 to 3 days and states it feels like her thoughts are racing in her head. Patient has a history of bipolar and is not currently on medication. Patient is also taking care of her 3-month-old at home. Patient denies any suicidal homicidal ideation. Patient is very paranoid on initial exam and goes from speaking to me normally to crying. -: unknown Severity scale (0 -10): 0 Improves with: none Worsens with: none Associated Symptoms: denies other symptoms Treatments Prior to Arrival: none - Related Data Previous Rx's Medication Instructions Recorded Last Taken Type Ibuprofen [Motrin] 600 mg PO Q8H PRN #30 tablet 06/28/19 Unknown Rx oxyCODONE /ACETAMINOPHEN [Percocet 1 tab PO Q6HR PRN #30 tablet 06/28/19 Unknown Rx 5/325] Allergies Allergy/AdvReac Type Severity Reaction Status Date / Time No Known Allergies Allergy Verified 01/25/19 16:53 ED Review of Systems ROS: Stated complaint: PANIC ATTACK Other details as noted in HPI Comment: All other systems reviewed and negative Constitutional: denies: chills, fever Eyes: denies: eye pain, eye discharge, vision change ENT: denies: ear pain, throat pain Respiratory: denies: cough, shortness of breath, wheezing Cardiovascular: denies: chest pain, palpitations Endocrine: no symptoms reported Gastrointestinal: denies: abdominal pain, nausea, diarrhea Genitourinary: denies: urgency, dysuria, discharge Musculoskeletal: denies: back pain, joint swelling, arthralgia Skin: denies: rash, lesions Neurological: denies: headache, weakness, paresthesias Psychiatric: denies: anxiety, depression, homicidal thoughts, suicidal thoughts Hematological/Lymphatic: denies: easy bleeding, easy bruising ED Past Medical Hx - Past Medical History Previous Medical History?: Yes Hx Hypertension: No Hx Heart Attack/AMI: No Hx Diabetes: No Hx Deep Vein Thrombosis: No Hx Liver Disease: No Hx Renal Disease: No Hx Sickle Cell Disease: No Hx Seizures: No Hx Psychiatric Treatment: Yes (bipolar) Hx Asthma: No Hx COPD: No Hx Dementia: No Hx HIV: No - Surgical History Past Surgical History?: Yes Hx Pacemaker: No Hx Internal Defibrillator: No Additional Surgical History: - Social History Smoking Status: Never Smoker Substance Use Type: None - Medications Home Medications: Home Medications Medication Instructions Recorded Confirmed Last Taken Type Ibuprofen [Motrin] 600 mg PO Q8H PRN #30 tablet 06/28/19 Unknown Rx oxyCODONE /ACETAMINOPHEN [Percocet 1 tab PO Q6HR PRN #30 tablet 06/28/19 Unknown Rx 5/325] ED Physical Exam - General Limitations: No Limitations General appearance: alert, in no apparent distress - Head Head exam: Present: atraumatic, normocephalic - Eye Eye exam: Present: normal appearance, PERRL, EOMI - ENT ENT exam: Present: mucous membranes moist - Neck Neck exam: Present: normal inspection - Respiratory Respiratory exam: Present: normal lung sounds bilaterally. Absent: respiratory distress - Cardiovascular Cardiovascular Exam: Present: regular rate, normal rhythm. Absent: systolic murmur, diastolic murmur, rubs, gallop - GI/Abdominal GI/Abdominal exam: Present: soft, normal bowel sounds - Extremities Exam Extremities exam: Present: normal inspection - Back Exam Back exam: Present: normal inspection - Neurological Exam Neurological exam: Present: alert, oriented X3, CN II-XII intact. Absent: motor sensory deficit - Psychiatric Psychiatric exam: Present: normal affect, normal mood, other (Flight of ideas, paranoid). Absent: homicidal ideation, suicidal ideation - Skin Skin exam: Present: warm, dry, intact, normal color. Absent: rash ED Course Vital Signs 10/08/19 10/08/19 10/08/19 16:28 19:15 19:55 Temperature 97.7 F 97.9 F Pulse Rate 107 H 88 Respiratory 18 20 18 Rate Blood Pressure 123/89 Blood Pressure 125/76 [Right] O2 Sat by Pulse 100 99 99 Oximetry ED Medical Decision Making - Lab Data Result diagrams: 10/08/19 16:53 10/08/19 16:53 Lab Results 10/08/19 10/08/19 10/08/19 Range/Units 16:53 16:53 16:53 WBC (4.5-11.0) K/mm3 RBC (3.65-5.03) M/mm3 Hgb (10.1-14.3) gm/dl Hct (30.3-42.9) % MCV (79-97) fl MCH (28-32) pg MCHC (30-34) % RDW (13.2-15.2) % Plt Count (140-440) K/mm3 Lymph % (Auto) Winn % (Auto) Eos % (Auto) Baso % (Auto) Lymph # Winn # Eos # Baso # Seg Neutrophils % Seg Neutrophils # Sodium 139 (137-145) mmol/L Potassium 3.6 (3.6-5.0) mmol/L Chloride 101.9 (98-107) mmol/L Carbon Dioxide 21 L (22-30) mmol/L Anion Gap 20 mmol/L BUN 10 (7-17) mg/dL Creatinine 0.6 L (0.7-1.2) mg/dL Estimated GFR > 60 ml/min BUN/Creatinine Ratio 17 % Glucose 112 H (65-100) mg/dL Calcium 9.7 (8.4-10.2) mg/dL HCG, Qual (Negative) Urine Color (Yellow) Urine Turbidity (Clear) Urine pH (5.0-7.0) Ur Specific [place] (1.003-1.030) Urine Protein (Negative) mg/dL Urine Glucose (UA) (Negative) mg/dL Urine Ketones (Negative) mg/dL Urine Blood (Negative) Urine Nitrite (Negative) Urine Bilirubin (Negative) Urine Urobilinogen (<2.0) mg/dL Ur Leukocyte Esterase (Negative) Urine WBC (Auto) (0.0-6.0) /HPF Urine RBC (Auto) (0.0-6.0) /HPF U Epithel Cells (Auto) (0-13.0) /HPF Urine Mucus /HPF Salicylates < 0.3 L (2.8-20.0) mg/dL Urine Opiates Screen Urine Methadone Screen Acetaminophen < 5.0 L (10.0-30.0) ug/mL Ur Barbiturates Screen Ur Phencyclidine Scrn Ur Amphetamines Screen U Benzodiazepines Scrn Urine Cocaine Screen U Marijuana (THC) Screen Drugs of Abuse Note Plasma/Serum Alcohol (0-0.07) % 10/08/19 10/08/19 10/08/19 Range/Units 16:53 16:53 16:53 WBC 4.9 (4.5-11.0) K/mm3 RBC 4.97 (3.65-5.03) M/mm3 Hgb 14.1 (10.1-14.3) gm/dl Hct 42.0 (30.3-42.9) % MCV 85 (79-97) fl MCH 28 (28-32) pg MCHC 34 (30-34) % RDW 14.5 (13.2-15.2) % Plt Count 332 (140-440) K/mm3 Lymph % (Auto) Test Cell Technician Winn % (Auto) Test Cell Technician Eos % (Auto) Test Cell Technician Baso % (Auto) Test Cell Technician Lymph # Test Cell Technician Winn # Test Cell Technician Eos # Test Cell Technician Baso # Test Cell Technician Seg Neutrophils % Test Cell Technician Seg Neutrophils # Test Cell Technician Sodium (137-145) mmol/L Potassium (3.6-5.0) mmol/L Chloride (98-107) mmol/L Carbon Dioxide (22-30) mmol/L Anion Gap mmol/L BUN (7-17) mg/dL Creatinine (0.7-1.2) mg/dL Estimated GFR ml/min BUN/Creatinine Ratio % Glucose (65-100) mg/dL Calcium (8.4-10.2) mg/dL HCG, Qual Negative (Negative) Urine Color (Yellow) Urine Turbidity (Clear) Urine pH (5.0-7.0) Ur Specific [place] (1.003-1.030) Urine Protein (Negative) mg/dL Urine Glucose (UA) (Negative) mg/dL Urine Ketones (Negative) mg/dL Urine Blood (Negative) Urine Nitrite (Negative) Urine Bilirubin (Negative) Urine Urobilinogen (<2.0) mg/dL Ur Leukocyte Esterase (Negative) Urine WBC (Auto) (0.0-6.0) /HPF Urine RBC (Auto) (0.0-6.0) /HPF U Epithel Cells (Auto) (0-13.0) /HPF Urine Mucus /HPF Salicylates (2.8-20.0) mg/dL Urine Opiates Screen Urine Methadone Screen Acetaminophen (10.0-30.0) ug/mL Ur Barbiturates Screen Ur Phencyclidine Scrn Ur Amphetamines Screen U Benzodiazepines Scrn Urine Cocaine Screen U Marijuana (THC) Screen Drugs of Abuse Note Plasma/Serum Alcohol < 0.01 (0-0.07) % 10/08/19 10/08/19 Range/Units 17:39 17:39 WBC (4.5-11.0) K/mm3 RBC (3.65-5.03) M/mm3 Hgb (10.1-14.3) gm/dl Hct (30.3-42.9) % MCV (79-97) fl MCH (28-32) pg MCHC (30-34) % RDW (13.2-15.2) % Plt Count (140-440) K/mm3 Lymph % (Auto) Winn % (Auto) Eos % (Auto) Baso % (Auto) Lymph # Winn # Eos # Baso # Seg Neutrophils % Seg Neutrophils # Sodium (137-145) mmol/L Potassium (3.6-5.0) mmol/L Chloride (98-107) mmol/L Carbon Dioxide (22-30) mmol/L Anion Gap mmol/L BUN (7-17) mg/dL Creatinine (0.7-1.2) mg/dL Estimated GFR ml/min BUN/Creatinine Ratio % Glucose (65-100) mg/dL Calcium (8.4-10.2) mg/dL HCG, Qual (Negative) Urine Color Yellow (Yellow) Urine Turbidity Clear (Clear) Urine pH 6.0 (5.0-7.0) Ur Specific [place] 1.012 (1.003-1.030) Urine Protein <15 mg/dl (Negative) mg/dL Urine Glucose (UA) Neg (Negative) mg/dL Urine Ketones 20 (Negative) mg/dL Urine Blood Mod (Negative) Urine Nitrite Neg (Negative) Urine Bilirubin Neg (Negative) Urine Urobilinogen < 2.0 (<2.0) mg/dL Ur Leukocyte Esterase Sm (Negative) Urine WBC (Auto) 3.0 (0.0-6.0) /HPF Urine RBC (Auto) 6.0 (0.0-6.0) /HPF U Epithel Cells (Auto) 5.0 (0-13.0) /HPF Urine Mucus Few /HPF Salicylates (2.8-20.0) mg/dL Urine Opiates Screen Presumptive negative Urine Methadone Screen Presumptive negative Acetaminophen (10.0-30.0) ug/mL Ur Barbiturates Screen Presumptive negative Ur Phencyclidine Scrn Presumptive negative Ur Amphetamines Screen Presumptive negative U Benzodiazepines Scrn Presumptive negative Urine Cocaine Screen Presumptive negative U Marijuana (THC) Screen Presumptive negative Drugs of Abuse Note Disclamer Plasma/Serum Alcohol (0-0.07) % - Medical Decision Making Patient is medically cleared Awaiting mental health evaluation and placement Critical care attestation.: If time is entered above; I have spent that time in minutes in the direct care of this critically ill patient, excluding procedure time. ED Disposition Clinical Impression: Paranoia, [place] Disposition: DC/TX-65 PSY HOSP/PSY UNIT Is pt being admited?: No Does the pt Need Aspirin: No Condition: Stable Referrals: PRIMARY CARE, [Primary Care Provider] - 3-5 Days
[2019-10-09 09:35] VITALS: BP 124/89
[2019-10-09] MEDS ORDERED: hydrOXYzine PAMOATE 25 MG CAP PO ONE (09:48)
== END 2019-10-09 10:30 ==
LOC: ED 16:19
DX: F22 Delusional disorders (principal); F30.9 Manic episode, unspecified; Z79.899 Other long term (current) drug therapy
CPT/HCPCS: 36415; 80048; 80307; 81001; 84703; 85025; 96372; 99285; J3486; 80320; G0480; Q0177

== ENCOUNTER 2019-11-28 23:31 | Emergency (ER) | payer MEDICAID ==
--- NOTE | 2019-11-29 01:08 | Emergency Department Report ---
ED Anxiety HPI - General Chief Complaint: Urogenital-Female Stated Complaint: BREAST PAIN Time Seen by Provider: 11/29/19 00:40 Source: patient Mode of arrival: Ambulatory Limitations: No Limitations - History of Present Illness Initial Comments: Patient is a 24-year-old female who presents to the emergency room for left breast pain. Patient states she gave 5 months ago and she is breast- feeding. Patient states that her breast pain has resolved. Patient states she actually came in to discuss with somebody about her anxiety. Patient states she is been anxious for about 2 months. Patient states anxiety is worsening. Patient denies depression. Patient denies panic attack. Patient denies suicidal and homicidal ideation. Patient denies hallucinations. Patient states she just wants to talk to somebody about how to take care of her anxiety. Patient denies recent travel. Patient denies recent international travel. Patient denies exposure to the novel coronavirus. Patient denies sick contacts. Patient denies fever and chills. Patient denies cough. Patient denies diarrhea. Patient denies coming in contact with anybody with symptoms of the novel coronavirus. MD Complaint: anxiety -: Sudden Symptoms: dry mouth, other Place: home Previous History of Same: No Severity: severe Quality: constant, worsening Provoking factors: emotional stress, other Improves With: deep breaths, rest Associated symptoms: denies other symptoms. denies: chest pain, shortness of breath, palpitations, diaphoresis, confusion, cough, fever/chills, headaches, anorexia, malaise, nausea/vomiting, rash, seizure, syncope, weakness - Related Data Home Medications: Previous Rx's Medication Instructions Recorded Last Taken Type Ibuprofen [Motrin] 600 mg PO Q8H PRN #30 tablet 06/28/19 Unknown Rx oxyCODONE /ACETAMINOPHEN [Percocet 1 tab PO Q6HR PRN #30 tablet 06/28/19 Unknown Rx 5/325] Allergies/Adverse Reactions: Allergies Allergy/AdvReac Type Severity Reaction Status Date / Time No Known Allergies Allergy Verified 01/25/19 16:53 ED Review of Systems ROS: Stated complaint: BREAST PAIN Other details as noted in HPI Constitutional: denies: chills, fever Eyes: denies: eye pain, eye discharge, vision change ENT: denies: ear pain, throat pain Respiratory: denies: cough, shortness of breath, wheezing Cardiovascular: denies: chest pain, palpitations Endocrine: no symptoms reported Gastrointestinal: denies: abdominal pain, nausea, diarrhea Genitourinary: denies: urgency, dysuria, discharge Musculoskeletal: denies: back pain, joint swelling, arthralgia Skin: denies: rash, lesions Neurological: denies: headache, weakness, paresthesias Psychiatric: anxiety. denies: depression, auditory hallucinations, visual hallucinations, homicidal thoughts, suicidal thoughts Hematological/Lymphatic: denies: easy bleeding, easy bruising ED Past Medical Hx - Past Medical History Previous Medical History?: Yes Hx Hypertension: No Hx Heart Attack/AMI: No Hx Diabetes: No Hx Deep Vein Thrombosis: No Hx Liver Disease: No Hx Renal Disease: No Hx Sickle Cell Disease: No Hx Seizures: No Hx Psychiatric Treatment: Yes (bipolar) Hx Asthma: No Hx COPD: No Hx Dementia: No Hx HIV: No - Surgical History Past Surgical History?: Yes Hx Pacemaker: No Hx Internal Defibrillator: No Additional Surgical History: - Family History Family history: no significant - Social History Smoking Status: Former Smoker Substance Use Type: None - Medications Home Medications: Home Medications Medication Instructions Recorded Confirmed Last Taken Type Ibuprofen [Motrin] 600 mg PO Q8H PRN #30 tablet 06/28/19 Unknown Rx oxyCODONE /ACETAMINOPHEN [Percocet 1 tab PO Q6HR PRN #30 tablet 06/28/19 Unknown Rx 5/325] ED Physical Exam - General Limitations: No Limitations General appearance: alert, in no apparent distress - Head Head exam: Present: atraumatic, normocephalic - Eye Eye exam: Present: normal appearance - ENT ENT exam: Present: mucous membranes moist - Neck Neck exam: Present: normal inspection - Respiratory Respiratory exam: Present: normal lung sounds bilaterally, other (Breast exam done with medical imaging tech Carmela in the room. Normal breast exam. Patient denies tenderness to palpation. No redness or swelling noted.). Absent: respiratory distress - Cardiovascular Cardiovascular Exam: Present: regular rate, normal rhythm. Absent: systolic murmur, diastolic murmur, rubs, gallop - GI/Abdominal GI/Abdominal exam: Present: soft, normal bowel sounds. Absent: tenderness, guarding - Extremities Exam Extremities exam: Present: normal inspection - Back Exam Back exam: Present: normal inspection - Neurological Exam Neurological exam: Present: alert, oriented X3 - Psychiatric Psychiatric exam: Present: anxious - Skin Skin exam: Present: warm, dry, intact, normal color. Absent: rash ED Course Vital Signs 11/28/19 11/29/19 23:38 01:17 Temperature 98.8 F 98.2 F Pulse Rate 113 H 96 H Respiratory 20 16 Rate Blood Pressure 123/54 124/79 [Right] O2 Sat by Pulse 100 98 Oximetry - Reevaluation(s) Reevaluation #1: Initial evaluation done. Patient contact done with medical imaging tech Carmela in the room at all times. Patient has her breast pump in the room. Patient is actively breast pump without difficulties or pain. 11/29/19 00:40 Reevaluation #2: I discussed all results and clinical findings with patient. I discussed plan of care with patient. Patient agrees with plan of care. Patient is stable for discharge. Patient will be discharged home. Patient given discharge instructions. Patient voiced understanding of discharge instructions. Nurse Aneta in room during entire discussion. 11/29/19 01:08 ED Medical Decision Making - Medical Decision Making Patient is a 24-year-old female that presents emergency room with complaints of breast pain and anxiety. Patient breasts were examined with Carmela the medical imaging tech in the room, breast exam within normal limits. Patient was able to pump without difficulties. Patient is currently breast-feeding her 5-month-old baby.. The patient's entire initial patient encounter done with medical imaging techCarmela in the room. Patient's anxiety stable enough to be managed as an outpatient. Patient does not acquire any further emergency medical evaluation or inpatient psychiatry. Patient discharged home. - Differential Diagnosis Anxiety, breast pain. Critical care attestation.: If time is entered above; I have spent that time in minutes in the direct care of this critically ill patient, excluding procedure time. ED Disposition Clinical Impression: Breast pain, Anxiety Disposition: DC-01 TO HOME OR SELFCARE Is pt being admited?: No Does the pt Need Aspirin: No Condition: Stable Instructions: Breast Fullness Versus Breast Engorgement (ED), Generalized Anxiety Disorder (ED), Anxiety (ED) Additional Instructions: Patient to follow-up with primary care in 2 to 3 days. Patient to follow-up with CONTROL PANEL ASSEMBLER in 2 to 3 days. Patient to rest. Patient to increase water. Patient to take Tylenol or ibuprofen as needed for pain. Patient to take meds as directed. Patient to return to the ER if condition worsens, changes or new symptoms arise. Patient to try relaxation techniques. Patient to try meditation. Patient to follow-up with a psychiatrist in 2 to 3 days. Referrals: XOCHILT BOOTH MD [Primary Care Provider[facility] Time of Disposition: 01:11
[2019-11-29 01:18] VITALS: BP 124/79
== END 2019-11-29 02:06 | disposition home or self-care (01) ==
LOC: ED 23:31
DX: N64.4 Mastodynia (principal); F41.9 Anxiety disorder, unspecified; F31.9 Bipolar disorder, unspecified; Z87.891 Personal history of nicotine dependence; Z79.899 Other long term (current) drug therapy
CPT/HCPCS: 99282